=== PATIENT | male | born 1960 | race Caucasian/White ===

== ENCOUNTER → 2016-06-25 16:09 | Outpatient (CLI) | payer BC ==
[2016-03-14 12:40] VITALS: BMI 39.4
[~2016-06-25 16:09] MED LIST: BETAPACE 120 M120 MG PO; METOPROLOL TART50 MG PO; PLAVIX75 MG PO; PROTONIX40 MG PO; SUGAR PILL; XARELTO20 MG PO; ZOCOR40 MG PO; ZYLOPRIM300 MG PO
[2016-06-25 16:32] LABS: BASOPHILS 0.1 % (0.0-2.0); EOSINOPHILS 1.1 % (0-7); HEMATOCRIT 51.8 % (42.0-54.0); HEMOGLOBIN 16.6 g/dL (13.5-17.5); IMMATURE GRANULOCYTES 1.4 % (0-5); LYMPHOCYTES 14.4 % (15-50); MCH 29.9 pg (26.0-34.0); MCV 93.2 fL (80.0-100.0); MEAN PLATELET VOLUME 11.4 fL (7.4-10.4); MONOCYTES 8.1 % (2-11); NEUTROPHILS 74.9 % (40-80); PLATELET COUNT 210 10x3/uL (130-400); RBC 5.56 10x6/uL (4.20-6.10); RDW 15.5 % (11.5-14.5); WBC 17.9 10x3/uL (4.8-10.8)
[2016-06-25 16:47] LABS: CALC OSMOLALITY 282 mosm/kg (275-300); CALCIUM 9.2 mg/dL (8.5-10.1); CARBON DIOXIDE 28.4 mmol/L (21.0-32.0); CHLORIDE - SERUM 103 mmol/L (98-107); CREATININE - SERUM 0.9 mg/dL (0.6-1.3); GLUCOSE 113 mg/dL (74-106); POTASSIUM - SERUM 4.6 mmol/L (3.5-5.1); SODIUM 141 mmol/L (136-145); UREA NITROGEN 14 mg/dL (7-18); eGFR NON AFRICAN AMERICAN > 90 mL/min (90-120)
== END | disposition home or self-care (01) ==
LOC: D.LABREF 16:09
PROVIDERS: Internal Medicine Interventional Cardiology
DX: I48.91 Unspecified atrial fibrillation (principal)

== ENCOUNTER → 2016-07-02 16:40 | Outpatient (CLI) | payer BC ==
[2016-03-14 12:40] VITALS: BMI 39.4
[2016-07-02 19:29] LABS: BASOPHILS 0.2 % (0.0-2.0); EOSINOPHILS 1.1 % (0-7); HEMATOCRIT 54.8 % (42.0-54.0); HEMOGLOBIN 17.8 g/dL (13.5-17.5); IMMATURE GRANULOCYTES 0.5 % (0-5); LYMPHOCYTES 14.2 % (15-50); MCH 30.2 pg (26.0-34.0); MCHC 32.5 g/dL (31.0-37.0); MCV 92.9 fL (80.0-100.0); MEAN PLATELET VOLUME 11.4 fL (7.4-10.4); MONOCYTES 7.3 % (2-11); NEUTROPHILS 76.7 % (40-80); PLATELET COUNT 194 10x3/uL (130-400); RDW 16.3 % (11.5-14.5); WBC 17.7 10x3/uL (4.8-10.8)
== END | disposition home or self-care (01) ==
LOC: D.LABREF 16:40
PROVIDERS: Internal Medicine Interventional Cardiology
DX: I48.91 Unspecified atrial fibrillation (principal)

== ENCOUNTER 2017-07-26 05:40 | Day surgery (SDC) | payer OTHER ==
[2017-07-25 14:31] LABS: CALC OSMOLALITY 280 mosm/kg (275-300); CALCIUM 8.5 mg/dL (8.5-10.1); CHLORIDE - SERUM 103 mmol/L (98-107); GLUCOSE 140 mg/dL (74-106); POTASSIUM - SERUM 3.7 mmol/L (3.5-5.1); SODIUM 140 mmol/L (136-145); UREA NITROGEN 12 mg/dL (7-18); eGFR NON AFRICAN AMERICAN 82 mL/min (90-120)
[~2017-07-26] VITALS: Ht 185.4 cm; Wt 134.7 kg
--- NOTE | ~2017-07-26 | OP ---
PATIENT NAME: MERVAT PEREZ MEDICAL RECORD: [id number] :64 LOCATION:D.OPS ADMISSION DATE: SURGEON: IVY NANCE MD DATE OF OPERATION: 07/26/2017 PREOPERATIVE DIAGNOSES: 1. Umbilical hernia. 2. Coronary artery disease. 3. Hypertension. 4. History of atrial fibrillation. 5. Gout. 6. Gastroesophageal reflux disease. POSTOPERATIVE DIAGNOSES: 1. Umbilical hernia. 2. Coronary artery disease. 3. Hypertension. 4. History of atrial fibrillation. 5. Gout. 6. Gastroesophageal reflux disease. PROCEDURE: Umbilical hernia repair with 4.3-cm Proceed mesh. SURGEON: Ivy Nance MD REPORT OF PROCEDURE: The patient's abdomen was prepped and draped in sterile fashion. A semicircular incision was made on the inferior aspect of the umbilicus. Electrocautery was used to dissect through the subcutaneous tissues and through the umbilical stalk. We encountered the hernia sac, which was intact on the superior aspect of the umbilicus. The hernia sac was freed up on all its edges and then pushed back down into the abdominal cavity. The hernia defect was approximately 2.5 cm in greatest diameter. The fascia was cleared off above and below, and the mesh was inserted in an underlay fashion. This was sutured down on all 4 sides using interrupted 0 Prolenes times 4. We then irrigated out the wound and reapproximated the fascia over top of the mesh using a running 0 Vicryl. The umbilicus was tacked down to the fascia with interrupted 3-0 Vicryl. We reapproximated the subcutaneous tissues with interrupted 3-0 Vicryls, and the skin was closed with running subcutaneous 5-0 Monocryl. A 10 mL of 0.25% Marcaine plain was infused into the surrounding tissues, and the wounds were dressed appropriately. COMPLICATIONS: None. CONDITION: Stable. ANESTHESIA: General endotracheal and local. BLOOD LOSS: Minimal. TRANSINT:[id number] Voice Confirmation ID: [id number] DOCUMENT ID: [id number] OPERATIVE REPORT [id number] MERVAT PEREZ CHRISTIAN MD CC: FRANCOISE LIAO DO [id number] DICTATION DATE: 07/26/17916 DANCING INSTRUCTOR: 07/26/17925 [id number] [place] [address]
[~2017-07-26 05:40] MED LIST changes: +COLCRYS0.6 MG PO; +COREG6.25 MG PO; +ENTRESTO 24 MG1 EACH PO; +GLUCOPHAGE500 MG PO
[2017-07-26 06:56] VITALS: BP 150/102; Ht 185.4 cm; Wt 134.7 kg
[2017-07-26] MEDS ORDERED: HYDROCODONE-APA1 TAB PO (09:14)
== END 2017-07-26 11:30 | disposition home or self-care (01) ==
LOC: D.OPS 05:40
PROVIDERS: Surgery
DX: K42.9 Umbilical hernia without obstruction or gangrene (principal); I25.10 Atherosclerotic heart disease of native coronary artery without angina pectoris; I10 Essential (primary) hypertension; K21.9 Gastro-esophageal reflux disease without esophagitis; M10.9 Gout, unspecified; Z95.1 Presence of aortocoronary bypass graft; Z01.812 Encounter for preprocedural laboratory examination

== ENCOUNTER → 2018-05-19 08:14 | Outpatient (CLI) | payer BC ==
[2017-07-26 06:56] VITALS: BMI 39.2
--- NOTE | ~2018-05-19 | ST ---
PATIENT:MERVAT PEREZ MEDICAL RECORD: [id number] SEX: M LOCATION:[facility] ORDER #: ADMISSION DATE: 05/19/18 AGE OF PATIENT: 57 REFERRING PHYSICIAN: INTERPRETING PHYSICIAN: ROSY REEVES MD DATE OF SERVICE: 05/19/2018 PROCEDURE: Nuclear stress test. INDICATION: Angina, coronary artery disease, cardiomyopathy, and palpitations. The patient was exercised on standard Lexiscan protocol with 25 mCi of sestamibi injected at peak stress, 8 mCi used previously for rest images. FINDINGS: Gated SPECT reveals a preserved ejection fraction of 51% with decreased thickening and brightening throughout the inferior segments. SPECT IMAGING: Cardiolite was used as myocardial perfusion agent. There was a fixed perfusion defect inferiorly, compatible with previous inferior myocardial infarction; however, there was reversibility anteriorly and laterally to include the basal, mid, and apical anterior segments; apical lateral, mid lateral, and basilateral segments. OVERALL IMPRESSION: This is a markedly abnormal nuclear stress test with fixed perfusion defect inferiorly; reversible ischemia anteriorly and laterally, suggestive of multivessel coronary artery disease. We will proceed with coronary angiography as followup study. TRANSINT:[id number] Voice Confirmation ID: [id number] DOCUMENT ID: [id number] ROSY REEVES MD CC: FRANCOISE LIAO DO [id number] DICTATION DATE: 05/21/18 1208 ADDRESS CHANGE CLERK: 05/21/18 2147 [facility] CLI 05/19/18 [place] [id number]
[~2018-05-19 08:14] MED LIST changes: +HYDROCODONE-APA1 TAB PO
== END | disposition home or self-care (01) ==
LOC: D.HCCARDIO 08:14
DX: I25.119 Atherosclerotic heart disease of native coronary artery with unspecified angina pectoris (principal)

== ENCOUNTER 2018-05-29 11:11 | Outpatient (CLI) | payer BC ==
[~2018-05-29] VITALS: Ht 185.4 cm; Wt 138.2 kg
--- NOTE | ~2018-05-29 | HEMODYNAMI ---
PATIENT:MERVAT PEREZ MEDICAL RECORD: [id number] : 64 LOCATION:[facility] ADMISSION DATE: 05/29/18 Generatedon:05/29/201814:33 Patient name: MERVAT PEREZ Patient #: [id number] SSN: : [birth year] Date of study: 05/29/2018 Page: Of Hemodynamic Procedure Report Patient Data Patient Demographics Procedure consent was obtained First Name: MERVAT Gender: Male Last Name: ANA : 1960 Patient #: [id number] Age: 57 year(s) Race: Unknown Additional ID: [id number] Contact details [address]: [address] [place] [address] TRAIL State: [place] City: [place] Zip code: [address] Past Medical History Allergies: No known allergies Admission Admission Data Admission Date: 05/29/2018 Admission Time: 11:11 Height (in.): 71 BSA: 2.54 (m2) Height (cm.): 180.34 BMI: 43.24 (kg/m2) Weight (lbs.): 310 Weight (kg.): 140.61 Lab Results Lab Result Date: 05/29/2018 Lab Result Time: 0:00 Biochemistry Name Units Result Min Max BUN mg/dl 12 --(-*--)-- 7 18 Creatinine mg/dl 0.9 --(-*--)-- 0.6 1.3 CBC Name Units Result Min Max Hemoglobin g/dl 18 --(----)*- 13.5 17.5 Procedure Procedure Types Cath Procedure Diagnostic Procedure LHC LHC w/Coronaries Sedation Charges Moderate Sedation up to 15 minutes Procedure Description Procedure Date Procedure Date: 05/29/2018 Procedure Start Time: 14:15 Procedure End Time: 14:31 Procedure Staff Name Function Kirby Arnold MD Performing Physician Radha Escalona RT Monitor Erika Ibarra RT Scrub Ghislaine Graham RN Nurse Anson Gonzalez RT Printing Supervisor Procedure Data Cath Procedure Fluoroscopy Diagnostic fluoroscopy Total fluoroscopy Time: 2.1 time: 2.1 min min Diagnostic fluoroscopy Total fluoroscopy dose: 953 dose: 953 mGy mGy Contrast Material Contrast Material Type Amount (ml) Isovue 300 51 Entry Location Entry Primary Successful Side Size Upsize Upsize Entry Closure Johnson ccessful Closure Location (Fr) 1 (Fr) 2 (Fr) Remarks Device Remarks Radial Right 6 Fr Mechanical artery Short Compression Estimated blood loss: 5 ml Diagnostic catheters Device Type Used For End Catheter Placement DIAGNOSTIC Harmony 110cm 5 Procedure Fr catheter ([id number]) Procedure Complications No complications Procedure Medications Medication Administration Route Dosage 0.9% NaCl I.V. 100 ml/hr Oxygen etCO2 Nasal cannula 2 l/min Lidocaine 2% added to field 20 Heparin Flush Bag added to field 2 bags (1000units/500ml NS) Radial Cocktail added to field 1 syringe (Verapomil 2mg/Nitro 400mcg/Heparin 1500units) Versed I.V. 2 mg Fentanyl I.V. 50 mcg Versed I.V. 1 mg Fentanyl I.V. 25 mcg Versed I.V. 1 mg Fentanyl I.V. 25 mcg Hemodynamics Rest BSA: 2.54 (m2) HGB: 18 (g/dl) O2 Consumption: Estimated: 304.32 (ml/min) O2 Cons umption indexed: Estimated:119.81 (ml/min/m) Heart Rate: 73 (bpm) Pressure Samples Time Site Value (mmHg) Purpose Heart Use Rate(bpm) 14:18 LV 86/-3,1 Snapshot 80 14:18 AO 81/61(72) Pullback 82 14:18 LV 86/-9,-4 Pullback 82 Gradients Valve Time Site 1 Site 2 Mean SEP/DFP Peak To Heart Use (mmHg) (sec/min) Peak Rate (mmHg) (bpm) Aortic 14:18 LV AO 3 15 5 82 86/-9,-4 81/61(72) Calculations Valve P-P Mean Valve Index Valve Source Name Gradient Area Flow (cm2) Aortic 5 3 5 3 Snapshots Pre Cath Intra NCS Post Cath Vital Signs Time Heart Resp SPO2 etCO2 NIBP (mmHg) Rhythm Pain Sedation Rate (ipm) (%) (mmHg) Status Level (bpm) 13:55:05 74 19 98 31.8 114/81(97) NSR 0 (11) 10(A) , No pain 13:59:12 73 22 95 35.5 117/86(103) NSR 0 (11) 10(A) , No pain 14:03:22 74 22 97 32.6 115/84(102) NSR 0 (11) 10(A) , No pain 14:07:30 76 22 96 30.3 119/86(105) NSR 0 (11) 10(A) , No pain 14:11:42 78 15 98 29.6 124/83(103) NSR 0 (11) 10(A) , No pain 14:15:56 78 14 97 32.6 122/80(106) NSR 0 (11) 10(A) , No pain 14:20:08 79 20 98 31.1 103/68(87) NSR 0 (11) 10(A) , No pain 14:24:16 80 17 96 16.3 122/73(96) NSR 0 (11) 9(A) , No pain 14:28:28 80 19 91 25.2 106/67(84) NSR 0 (11) 10(A) , No pain Medications Time Medication Route Dose Verified Delivered Reason Notes E ffectiveness by by 13:54:16 0.9% NaCl I.V. 100 Kirby Ghislaine used for ml/hr Catalina Santos procedure MD MORE 13:54:22 Oxygen etCO2 2 l/min Kirby Oneilla used for Nasal Catalina Santos procedure cannula MD MORE 13:54:28 Lidocaine 2% added 20ml Kirby Orr for local to vial Catalina Catalina anesthetic field MD VANCE 13:58:09 Heparin Flush added 2 bags Kirby Orr used for Bag to Catalina Catalina procedure (1000units/500ml field MD VANCE NS) 13:58:15 Radial Cocktail added 1 Kirby Orr used for (Verapomil to syringe Catalina Catalina procedure 2mg/Nitro field MD VANCE 400mcg/Heparin 1500units) 14:07:16 Versed I.V. 2 mg Kirby Ghislaine for Catalina Santos sedation MD MORE 14:07:27 Fentanyl I.V. 50 mcg Kirby Ghislaine for Catalina Santos sedation MD MORE 14:15:08 Versed I.V. 1 mg Kirby Ghislaine for Catalina Santos sedation MD MORE 14:15:12 Fentanyl I.V. 25 julianne Cruz sedation MD MORE 14:23:10 Versed I.V. 1 mg Kirby Cruz sedation MD MORE 14:23:15 Fentanyl I.V. 25 mcg Kirby Cruz sedation MD MOREcap maker Log Time Note 13:43:04 Signed procedure consent form obtained from patient. 13:43:06 Anson Gonzalez RT(R) sent for patient. Start room use. 13:43:07 Diagnostic Cath status Elective 13:43:08 Time tracking: Regular hours (M-F 7:00 - 5:00) 13:43:12 Plan of Care:Hemodynamics will remain stable., Cardiac rhythm will remain stable., Comfort level will be maintained., Respiratory function will remain adequate., Patient/ family verbilizes understanding of procedure., Procedure tolerated without complication., Recovers from procedure without complications.. 13:43:20 H&P Date Dictated: 05/07/2018 Within 30 days and on chart., H&P Addendum completed by physician on day of procedure. (MUST COMPLETE FOR ALL OUTPATIENTS). 13:43:27 Patient allergic to No known allergies 13:43:37 Patient Height : 71 inches 13:43:41 Patient Weight : 310 lbs 13:47:40 Patient received from Pre/Post Procedure Room to CCL 1 Alert and oriented. Tansferred to table in Supine position. 13:47:41 Warm blankets applied, and mariann hugger turned on for patient comfort. 13:47:41 Correct patient and procedure confirmed by team. 13:47:42 ECG and BP/O2 sat monitors applied to patient. 13:54:04 Vital chart was started 13:54:16 0.9% NaCl 100 ml/hr I.V. was administered by Ghislaine Graham RN; used for procedure; 13:54:22 Oxygen 2 l/min etCO2 Nasal cannula was administered by Ghislaine Graham RN; used for procedure; 13:54:28 Lidocaine 2% 20ml vial added to field was administered by Kirby Arnold MD; for local anesthetic; 13:57:08 Baseline sample Acquired. 13:57:12 Rhythm: sinus rhythm 13:57:14 Full Disclosure recording started 13:57:15 Pre-procedure instructions explained to patient. 13:57:15 Pre-op teaching completed and patient verbalized understanding. 13:57:17 Family in waiting room. 13:57:19 Patient NPO since Midnight. 13:57:22 Is the patient allergic to Iodine/contrast media? No. 13:57:29 Is patient on blood thinner?Yes 13:57:32 ACC The patient was administered the following blood thiners within the last 24 hours: ACCPlavix 13:57:57 Patient diabetic? Yes. 13:58:00 If diabetic: On Metformin? Yes 13:58:04 If on Metformin: Last Dose? 05/27/2018 13:58:05 ----Pre-sedation anethsthesia assessment.---- 13:58:09 Heparin Flush Bag (1000units/500ml NS) 2 bags added to field was administered by Kirby Arnold MD; used for procedure; 13:58:09 Previous problem with sedation/anesthesia? No ? 13:58:10 Snore? Yes 13:58:12 Sleep apnea? Yes 13:58:14 Deviated septum? No 13:58:15 Radial Cocktail (Verapomil 2mg/Nitro 400mcg/Heparin 1500units) 1 syringe added to field was administered by Kirby Arnold MD; used for procedure; 13:58:16 Opens mouth fully? Yes 13:58:17 Sticks out tongue? Yes 13:58:20 Airway obstruction? No ? 13:58:25 Dentures? Yes in tight 13:58:28 Pre procedure: right dorsailis pedis pulse 2+ Normal; easily identifiable; not easily obliterated 13:58:33 Modified Shahab's test Ulnar < 7 seconds 13:58:36 Patient pain scale 0/10 ?. 13:58:53 IV patent on arrival in left forearm with 0.9% NaCl at 10ml/hr. 14:00:51 Lab Result : BUN 12 mg/dl 14:00:51 Lab Result : Creatinine 0.9 mg/dl 14:00:51 Lab Result : Hemoglobin 18 g/dl 14:00:55 Lab results completed and on chart. 14:00:58 Right Radial & Right Groin area was prepped with chlora-prep and draped in sterile fashion 14:00:59 Alarms reviewed by R. N. 14:00:59 Sharps counted by scrub and verified by R.N. 14:01:01 Physician paged 14:01:04 Use device set Radial Dx or PCI 14:01:05 ACIST Syringe (60580) opened to sterile field. 14:01:06 Medline Cath Pack ([id number]) opened to sterile field. 14:01:06 Bag Decanter (2002) opened to sterile field. 14:01:07 DIAGNOSTIC WIRE .035 260cm J wire (064029) opened to sterile field. 14:01:07 ACIST Hand Control (67719) opened to sterile field. 14:01:08 ACIST Manifold (59412) opened to sterile field. 14:01:08 Tegaderm 4 x 4 (1626W) opened to sterile field. 14:01:09 MBrace Wrist Support (040201148) opened to sterile field. 14:01:10 NEEDLE Cook 21G 4cm Radial (C82922) opened to sterile field. 14:01:13 SHEATH 6FR Slender (06-9140) opened to sterile field. 14:05:00 Zero performed for pressure channel P1 14:06:43 --------ALL STOP TIME OUT------ 14:06:44 Final Timeout: patient, procedure, and site verified with staff and physician. All members of the team are in agreement. 14:06:48 Right Radial & Right Groin site verified by team. 14:06:57 Physical assessment completed. ASA score P 2 - A patient with mild systemic disease as per Kirby Arnold MD. 14:07:01 Sedation plan: IV Moderate Sedation Medication:Versed, Fentanyl 14:07:16 Versed 2 mg I.V. was administered by Ghislaine Graham RN; for sedation; 14:07:27 Fentanyl 50 mcg I.V. was administered by Ghislaine Graham RN; for sedation; 14:15:08 Versed 1 mg I.V. was administered by Ghislaine Graham RN; for sedation; 14:15:12 Fentanyl 25 mcg I.V. was administered by Ghislaine Graham RN; for sedation; 14:15:22 Procedure started. 14:15:31 Local anesthetic to right radial artery with Lidocaine 2% by Kirby Arnold MD.INITIAL ACCESS ONLY 14:16:27 A 6 Fr Short sheath was inserted into the Right Radial artery 14:16:49 A DIAGNOSTIC Harmony 110cm 5 Fr catheter (027545) was advanced over the wire and used for Procedure. 14:17:49 LV gram done using IVORY 14:17:51 Injector settings: Ml/sec: 7, Volume: 15, 14:18:16 LV hemodynamics recorded. 14:18:20 EF : 55 % 14:18:58 LCA angiography performed. 14:22:21 RCA angiography performed. 14:23:10 Versed 1 mg I.V. was administered by Ghislaine Graham RN; for sedation; 14:23:15 Fentanyl 25 mcg I.V. was administered by Ghislaine Graham RN; for sedation; 14::38 Catheter removed. 14:28:25 Procedure ended.(Physican Out) 14:28:37 TR BAND Large ([id number]) opened to sterile field. 14:29:08 Sheath removed intact; hemostasis achieved with Mechanical Compression to the Right Radial artery. 14:29:25 Fluoroscopy time 02.10 minutes. 14:29:40 Fluoroscopy dose: 953 mGy 14:29:40 Flurop Dose total: 953 14:29:43 Contrast amount:Isovue 300 51ml. 14:29:46 TR band inflated with 10cc of air. 14:29:50 Post-procedure physical assessment completed. ASA score P 2 - A patient with mild systemic disease as per Kirby Arnold MD. 14:29:53 Post procedure rhythm: sinus rhythm 14:29:56 Estimated blood loss: 5 ml 14:29:58 Post procedure instruction explained to patient.Patient verbalizes understanding. 14:29:58 Patient needs reinforcement of post procedure teaching. 14:30:22 Procedure type changed to Cath procedure, Diagnostic procedure, LHC, LHC w/Coronaries, Sedation Charges, Moderate Sedation up to 15 minutes 14:30:55 Procedure and supply charges have been captured, reviewed, submitted and are correct. 14:30:57 Procedure Complication : No complications 14:30:59 Vital chart was stopped 14::59 See physician's report for complete and final results. 14:31:01 Report given to Pre/Post Procedure Room. 14:31:04 Patient transfered to Pre/Post Procedure Room with Bed. 14:31:05 Procedure ended. 14:31:05 Full Disclosure recording stopped 14:31:12 End room use (Document Last) Device Usage Item Name Manufacture Quantity Catalog Hospital Part Current Minimal Lot# / Number Charge Number Stock Stock Serial# Code ACIST Acist 1 53815 403747 477453 154579 20 Syringe Medical (78267) Systems Inc Medline Medline 1 [id number] 298996 76599 628110 5 Cath Pack ([id number]) Bag Microtek 1 2001S 346002 21324 898849 5 Decanter Medical Inc. () DIAGNOSTIC St Shahid 1 069085 505483 135483 559152 30 WIRE .035 260cm J wire (409370) ACIST Hand Acist 1 24949 237483 370976 667777 5 Control Medical (99844) Systems Inc ACIST Acist 1 82178 556983 913353 154631 5 Manifold Medical (13484) Systems Inc Tegaderm 4 3M 1 1626W 114847 199591 770458 5 x 4 (1626W) MBrace Advanced 1 140-0250-00 209691 52655 655481 5 Wrist Vascular Support Dynamics (022040965) NEEDLE Cook Cook Medical 1 G85397 316201 703033 394771 5 21G 4cm Radial (W88009) SHEATH 6FR Terumo 1 [id number] 008272 453666 507507 5 Slender (80-1060) DIAGNOSTIC Terumo 1 40-5153 503391 963213 999900 5 Harmony 110cm 5 Fr catheter (543924) TR BAND Terumo 1 [id number] 163050 818853 840181 40 Large ([id number]) Signature Audit [place] Stage Time Signature Unsigned Intra-Procedure 05/29/2018 Radha Escalona 2:33:16 PM RT(R) Signatures Monitor : Radha Escalona Signature : RT Date : Time : [facility] [address] [place] [address]
[2018-05-29] MEDS ORDERED: PRAVACHOL80 MG PO (11:41)
[2018-05-29] MEDS ORDERED: BAYER CHEWABLE81 MG PO (11:42)
[2018-05-29 11:50] VITALS: BP 134/93; Ht 185.4 cm; Wt 138.2 kg
[2018-05-29 11:58] LABS: BASOPHILS 0.4 % (0-2); EOSINOPHILS 4.2 % (0-7); HEMATOCRIT 50.9 % (42.0-54.0); IMMATURE GRANULOCYTES 0.1 % (0-5); LYMPHOCYTES 29.4 % (15-50); MCH 32.4 pg (26.0-34.0); MCHC 35.4 g/dL (31.0-37.0); MCV 91.7 fL (80.0-100.0); MEAN PLATELET VOLUME 10.8 fL (7.4-10.4); MONOCYTES 10.5 % (2-11); NEUTROPHILS 55.4 % (40-80); PLATELET COUNT 206 10x3/uL (130-400); RBC 5.55 10x6/uL (4.20-6.10); WBC 7.4 10x3/uL (4.8-10.8)
[2018-05-29 12:06] LABS: CALC OSMOLALITY 281 mosm/kg (275-300); CALCIUM 9.1 mg/dL (8.5-10.1); CARBON DIOXIDE 25.6 mmol/L (21.0-32.0); CHLORIDE - SERUM 103 mmol/L (98-107); CREATININE - SERUM 0.9 mg/dL (0.6-1.3); GLUCOSE 162 mg/dL (74-106); POTASSIUM - SERUM 3.8 mmol/L (3.5-5.1); SODIUM 139 mmol/L (136-145); UREA NITROGEN 12 mg/dL (7-18); eGFR NON AFRICAN AMERICAN > 90 mL/min (90-120)
--- NOTE | 2018-05-29 14:40 | NUR ---
PT RECEIVED VIA STRETCHER FROM RATING EXAMINER FOR RECOVERY. DROWSY BUT VERALLY AROUSABLE. HR 78 NSR, PB 101//69. O2 ON AT 2L/NC, O2 SAT 94. TR BAND TO R WRIST IN PLACE, DRESSING CDI NO BLEEDING OR HEMATOMA NOTED. CALL LIGHT IN REACH, FAMILY AT BEDSIDE.
--- NOTE | 2018-05-29 15:02 | NUR ---
TR BAND IN PLACE, NO BLEEDING OR SWELLING NOTED SITE SOFT TO TOUCH. CAP REFILL BRISK. OJ GIVEN PER REQUEST. FAMILY AT BEDSIDE, DENIES PAIN OR NEEDS. CALL LIGHT IN REACH
--- NOTE | 2018-05-29 15:15 | NUR ---
TR BAND IN PLACE NO BLEEDING OR SWELLING NOTED. VSS, FAMILY AT BEDSIDE
--- NOTE | 2018-05-29 15:35 | NUR ---
HOB ELEVATED, SANDWICH SERVED. DENIES PAIN OR NAUSEA. HR 74 NSR, BP 112/73. TR BAND IN PLACE, DRESSING CDI NO BLEEDING OR SWELLING NOTED. FAMILY AT BEDSIDE
--- NOTE | 2018-05-29 15:50 | NUR ---
3CC AIR REMOVED FROM TR BAND, NO BLEEDING OR SWELLING NOTED. CAP REFILL BRISK, EXTREMITY WARM AND PINK. HR 73 NSR. DENIES PAIN OR NEEDS.
--- NOTE | 2018-05-29 16:02 | NUR ---
3 ADDITIONAL CC OF AIR REMOVED FROM TR BAND. NO BLEEDING OR SWELLING NOTED. PT SITTING UP IN BED VISITING WITH FAMILY. DENIES PAIN OR NEEDS AT THIS TIME. CALL LIGHT IN REACH
--- NOTE | 2018-05-29 16:20 | NUR ---
2 CC AIR REMOVED FROM TR BAND. NO BLEEDING OR SWELLING NOTED. DISCHARGE TEACHING DONE PT AND VERBALIZES UNDERSTANDING.
--- NOTE | 2018-05-29 16:30 | NUR ---
IV REMOVED WITH CATH INTACT, MONITORS REMOVED AND UP TO DRESS FOR DISCHARGE.
--- NOTE | 2018-05-29 16:40 | NUR ---
REMAINING AIR REMOVED FROM TR BAND, NO BLEEDING OR HEMATOMA NOTED. 4X4 W TEGADERM DRESSING APPLIED, IMMOBILIZER ON. DISCHARGED TO PRIVATE VEHICLE VIA WC
--- NOTE | 2018-06-03 11:50 | OP ---
PATIENT NAME: MERVAT PEREZ MEDICAL RECORD: [id number] :64 LOCATION:[facility] ADMISSION DATE: SURGEON: JIM ARREOLA MD DATE OF OPERATION: 05/29/2018 PROCEDURES: Left heart catheterization, selective coronary angiography, right femoral artery approach. CATHETERS: Radial sheath, Brandenburg catheter. The procedure was well tolerated. The patient was returned to room after sheath was removed and TR band was placed. FINDINGS: Left ventriculography in 30-degree IVORY view; normal wall motion and normal systolic function. CORONARY ANATOMY: LEFT MAIN: Left main is free of disease. LAD: LAD has previously placed stent that is widely patent. There is some typical distal diffuse disease. CIRCUMFLEX: Is somewhat of a codominant system, large circumflex, free of disease. RIGHT CORONARY ARTERY: Again, a codominant system, early stenosis, negative flow obstructive. IMPRESSION: Minimal significant disease of the distal apex, best managed medically. TRANSINT:[id number] Voice Confirmation ID: [id number] DOCUMENT ID: [id number] JIM ARREOLA MD at 1150 CC: [id number] DICTATION DATE: 05/29/18 1439 MICA SIZER: 05/29/18 1508 [facility]P CLI 05/29/18 [address] [place] [address]
== END 2018-05-29 16:40 | disposition home or self-care (01) ==
LOC: D.CATH 11:11
PROVIDERS: Internal Medicine Interventional Cardiology
DX: I25.119 Atherosclerotic heart disease of native coronary artery with unspecified angina pectoris (principal); Z01.812 Encounter for preprocedural laboratory examination

== ENCOUNTER → 2019-06-10 13:22 | Outpatient (CLI) | payer BC ==
[2018-05-29 11:50] VITALS: BMI 40.2
--- NOTE | ~2019-06-10 | EC ---
PATIENT:MERVAT PEREZ DATE OF SERVICE: 06/10/19 SEX: M MEDICAL RECORD: [id number] DATE OF : 64 LOCATION:[facility] AGE OF PATIENT: 58 ADMISSION DATE: 06/10/19 REFERRING PHYSICIAN: INTERPRETING PHYSICIAN: JIM ARREOLA MD ECHOCARDIOGRAM REPORT ECHO CHARGES 4 ECHO COMPLETE Date: 06/10/19 CLINICAL DIAGNOSIS: FATIGUE/CARDIOMYOPATHY H/O HTN/CAD ECHOCARDIOGRAPHIC MEASUREMENTS (adult normal given) AC root (d.<3.7cm) 3.3 cm LV Septum d (<1.2 cm> 1.5 cm Valve Excursion 1.4 cm LV Septum (systole) 1.9 cm Left Atria (s.<4.0cm> 5.2 cm LVPW d(<1.2cm) 1.2 cm RV (d.<2.3cm) 3.3 cm LVPW (sytole) 1.6 cm LV diastole(<5.6CM) 7.2 cm MV E-F(>70mm/sec) cm LV systole 5.2 cm LVOT Diameter 2.2 cm MV exc.(>10mm) cm Est.ejection fraction (50-75%) % DOPPLER: LVIT cm/sec A 92.0 cm/sec E 60.0 cm/sec LA cm/sec RVSP 40.0 mmHg LVOT 90.0 cm/sec AOP1/2T m/s Asc. Ao 139 cm/sec RVOT 58.0 cm/sec RA cm/sec PA 134 cm/sec AV Gradient Peak 7.7 mmHg AV Mean 4.5 mmHg AV Area 2.5 cm MV Gradient Peak 3.5 mmHg MV Mean 1.3 mmHg MV Area cm COMMENTS: OP - HC Supervisor Customer Records Division: 1 DHARA LONNIE Data Modeling Specialist: 3 Dr. Grady TAPE# PACS Pericardial Effusion N DATE OF SERVICE: Adequate 2-D echo, color-flow and spectral Doppler, and M-mode. LVH is present. LV internal dimension is normal. Wall motion is normal. EF is greater than or equal to 55%. Aortic valve is tricuspid. No evidence of stenosis by Doppler interrogation. Left atrium is dilated at 5.2 cm. Mitral valve shows no prolapse. Trace MR. Right-sided chambers are grossly normal. Trace TR. ECHOCARDIOGRAM REPORT [id number] PEREZ,MERVAT TRANSINT:[id number] Voice Confirmation ID: [id number] DOCUMENT ID: [id number] JIM ARREOLA MD CC: [id number] DICTATION DATE: 06/12/19 1329 MAILING JOGGER: 06/12/192032 DEP CLI 06/10/19 [id number] [place] [id number]
[~2019-06-10 13:22] MED LIST changes: +BAYER CHEWABLE81 MG PO; +PRAVACHOL80 MG PO
== END | disposition home or self-care (01) ==
LOC: D.HCCECHO 13:22
PROVIDERS: ATTEND Internal Medicine Interventional Cardiology
DX: I25.10 Atherosclerotic heart disease of native coronary artery without angina pectoris (principal)